=== PATIENT | male | born 1975 | race Caucasian/White ===

== ENCOUNTER 2021-02-10 08:34 | Day surgery (SDC) | payer MEDICAID, SELFPAY ==
[~2021-02-10] VITALS: Ht 177.8 cm; Wt 95.3 kg
[2021-02-10] MEDS ORDERED: SIMETHICONE 40 MG/0.6 ML ML ONE (08:42)
[2021-02-10] MEDS ORDERED: fentaNYL CITRATE/PF 100 MCG/2 ML AMP ONE (08:43)
[2021-02-10] MEDS ORDERED: MIDAZOLAM HCL 5 MG/5 ML VIAL ONE (08:43)
[2021-02-10] MEDS ORDERED: DIPHENHYDRAMINE INJ 50 MG/ML VIAL ONE (09:49)
[2021-02-10 12:48] VITALS: BP_SYST 126
== END 2021-02-10 10:45 | disposition home or self-care (01) ==
LOC: SDS 08:34 → SMU 08:34 → SDS 10:45 → EDSEX 11:00
PROVIDERS: ATTEND Internal Medicine
DX: R12 Heartburn (principal); R10.12 Left upper quadrant pain; I10 Essential (primary) hypertension; K29.50 Unspecified chronic gastritis without bleeding; Z79.899 Other long term (current) drug therapy; Z20.822 Contact with and (suspected) exposure to COVID-19
CPT/HCPCS: 36415; 43239; 87081; 88305; 88312; 88313; 99152; G0378; J1200; J2250; J3010; U0003